=== PATIENT | male | born 1985 | race African-American/Black ===

== ENCOUNTER 2018-09-21 23:38 | Emergency (ER) | payer OTHER ==
[~2018-09-21] VITALS: Ht 185.4 cm; Wt 121.6 kg
[~2018-09-21 23:38] MED LIST: HUMULIN N100 UNIT/1 SUBQ; HUMULIN R100 UNIT/M SUBQ; MULTIVITAMINS PO
[2018-09-21] MEDS ORDERED: GLUCOPHAGE XR750 MG PO (23:47)
[2018-09-22 01:03] VITALS: BP 133/78
== END 2018-09-22 01:43 | disposition home or self-care (01) ==
LOC: ER 23:38
PROVIDERS: Emergency Medicine
DX: Z11.3 Encounter for screening for infections with a predominantly sexual mode of transmission (principal); E11.9 Type 2 diabetes mellitus without complications; Z79.4 Long term (current) use of insulin